=== PATIENT | male | born 1960 | race Caucasian/White ===

== ENCOUNTER 2020-11-27 08:25 | Day surgery (SDC) | payer MEDICAID ==
[2020-11-27] VITALS (9 sets, daily range): BP systolic 132–150; BP diastolic 72–87
[~2020-11-27] VITALS: Ht 172.7 cm; Wt 97.0 kg
[~2020-11-27 08:25] MED LIST: ASPI-611 PO; FLO0.4C PO
[2020-11-27] MEDS ORDERED: normal saline 1000ml 1,000 ML IV PRN (08:45)
[2020-11-27] MEDS ORDERED: MULT-1074 PO (09:23)
[2020-11-27] MEDS ORDERED: ALBU18HF2 INH (09:24)
[2020-11-27] MEDS ORDERED: ACET-1131 PO (09:25)
[2020-11-27] MEDS ORDERED: CHLO25TA10 PO (09:26)
[2020-11-27] MEDS ORDERED: HYDR-3686 PO (09:27)
[2020-11-27] MEDS ORDERED: MELO-100 PO (09:28)
[2020-11-27] MEDS ORDERED: FLUO20CA39 PO (09:28)
[2020-11-27] MEDS ORDERED: LISI-600 PO (09:28)
[2020-11-27] MEDS ORDERED: PRAZ1CAP5 PO (09:29)
[2020-11-27] MEDS ORDERED: midazolam 2 mg/2 ml injection ONE (10:40)
[2020-11-27] MEDS ORDERED: fentaNYL/PF 50MCG/1 ML 2ML syringe ONE (10:40)
== END 2020-11-27 12:20 | disposition home or self-care (01) ==
LOC: SSTAY O 08:25
PROVIDERS: ATTEND Radiology Vascular & Interventional Radiology
DX: C78.6 Secondary malignant neoplasm of retroperitoneum and peritoneum (principal); C80.1 Malignant (primary) neoplasm, unspecified; R19.09 Other intra-abdominal and pelvic swelling, mass and lump; Z20.822 Contact with and (suspected) exposure to COVID-19; N40.0 Benign prostatic hyperplasia without lower urinary tract symptoms; I10 Essential (primary) hypertension; F41.9 Anxiety disorder, unspecified; F32.9 Major depressive disorder, single episode, unspecified; Z79.899 Other long term (current) drug therapy; Z79.82 Long term (current) use of aspirin; Z87.19 Personal history of other diseases of the digestive system
CPT/HCPCS: 10009; 36415; 87635; 99152; 99153; J2250; J3010; 49180; 77012

== ENCOUNTER 2022-09-26 06:43 | Day surgery (SDC) | payer MEDICAID ==
[~2022-09-26] VITALS: Ht 175.3 cm; Wt 93.3 kg
[2022-09-26] VITALS (10 sets, daily range): BP systolic 120–180; BP diastolic 70–108
[~2022-09-26 06:43] MED LIST changes: +ACET-1131 PO; +ALBU18HF2 INH; -ASPI-611 PO; +CHLO25TA10 PO; +FLUO20CA39 PO; +HYDR-3686 PO; +LISI20TA28 PO; +MELO-100 PO; +MULT-1074 PO; +PRAZ1CAP5 PO
[2022-09-26] MEDS ORDERED: normal saline 1000ml 1,000 ML IV PRN (07:05)
[2022-09-26] MEDS ORDERED: APIX2.5T PO (07:07)
[2022-09-26] MEDS ORDERED: HYDR-3964 PO (07:11)
[2022-09-26] MEDS ORDERED: ATOR10TA70 PO (07:11)
[2022-09-26 07:42] LABS: BASOPHILS # (AUTO) 0.1 X10'3 (0-0.2); EOSINOPHILS # (AUTO) 0.2 X10'3 (0-0.9); HEMOGLOBIN 12.7 g/dl (14.0-17.9); MEAN CORPUSCULAR HEMOGLOBIN 27.4 PG (27.0-31.0); MEAN CORPUSCULAR HGB CONC 33.2 g/dL (33.0-36.5); MEAN PLATELET VOLUME 7.2 FL (7.4-10.4); MONOCYTES # (AUTO) 0.9 X10'3 (0-0.9); RED BLOOD COUNT 4.62 X10'6 (4.70-6.10)
[2022-09-26 07:43] LABS: EOSINOPHILS % (AUTO) 2.2 % (0-6); HEMATOCRIT 38.1 % (42.0-52.0); LYMPHOCYTES # (AUTO) 3.3 X10'3 (1.1-4.8); LYMPHOCYTES % (AUTO) 36.9 % (21-51); MEAN CORPUSCULAR VOLUME 82.4 FL (78-98); MONOCYTES % (AUTO) 9.6 % (2-12); NEUTROPHILS # (AUTO) 4.5 X10'3 (1.8-7.7); NEUTROPHILS % (AUTO) 50.3 % (42-75); PLATELET COUNT 578 X10'3 (140-440); RED CELL DISTRIBUTION WIDTH 17.6 % (11.5-14.5)
[2022-09-26] MEDS ORDERED: midazolam 1 mg/ML 2ml injection ONE (08:56)
[2022-09-26] MEDS ORDERED: fentaNYL/PF 50MCG/1 ML 2ML syringe ONE ×2 (08:56→10:15)
[2022-09-26] MEDS ORDERED: LIDOcaine 1% (10mg/ml) 2ml vial ONE (10:03)
== END 2022-09-26 11:30 | disposition home or self-care (01) ==
LOC: SSTAY O 06:43
PROVIDERS: ATTEND Radiology Vascular & Interventional Radiology
DX: R22.2 Localized swelling, mass and lump, trunk (principal); I10 Essential (primary) hypertension; J90 Pleural effusion, not elsewhere classified; C38.4 Malignant neoplasm of pleura; F41.9 Anxiety disorder, unspecified; Z98.890 Other specified postprocedural states; Z79.899 Other long term (current) drug therapy
CPT/HCPCS: 20206; 32555; 36415; 77012; 85025; 85610; C1729; J3010; J3490; J7030; 32408; 99152; 99153; A4615; J2250

== ENCOUNTER 2023-01-23 10:26 | Day surgery (SDC) | payer MEDICAID ==
[2023-01-23] VITALS (9 sets, daily range): BP systolic 136–190; BP diastolic 78–100
[~2023-01-23] VITALS: Ht 175.3 cm; Wt 76.8 kg
[~2023-01-23 10:26] MED LIST changes: -ACET-1131 PO; -ALBU18HF2 INH; +APIX2.5T PO; -CHLO25TA10 PO; -FLO0.4C PO; +FLUD0.1T PO; -HYDR-3686 PO; +HYDR-3972 PO; -LISI20TA28 PO; -MELO-100 PO; +MORP30TA PO; -MULT-1074 PO; +ONDA-104 PO; +PROC10TA10 PO; +cefazolin 2gm/D5W 100mL 100 ML IV ONE; +famotidine 20mg tablet PO ONE; +metoprolol tartrate 12.5mg (1/2 tablet) PO ONE; +ringers solution, lacted 1,000 ML IV SCH
[2023-01-23 12:08] LABS: ABG BASE EXCESS 6.1 mmol/L (-2.0-2.0); ABG OXYGEN SATURATION 98.8 % (94-97); ABG PCO2 (T) 63.4 mmHg (35.0-48.0); ABG PO2 (T) 155.1 mmHg (75.0-100.0); ALLEN'S TEST POSITIVE; FLOW 3 L/min; FMetHb 0.3 % (0.0-1.5); FO2Hb 97.5 % (94-97); TOTAL HEMOGLOBIN 14.3 G/dl (14.0-17.9)
[2023-01-23 12:22] LABS: BASOPHILS % (AUTO) 0.6 % (0-1); EOSINOPHILS % (AUTO) 0.4 % (0-6); LYMPHOCYTES # (AUTO) 1.6 X10'3 (1.1-4.8); LYMPHOCYTES % (AUTO) 22.3 % (21-51); MEAN CORPUSCULAR HEMOGLOBIN 27.8 PG (27.0-31.0); MEAN CORPUSCULAR HGB CONC 32.6 g/dL (33.0-36.5); MEAN CORPUSCULAR VOLUME 85.2 FL (78-98); MEAN PLATELET VOLUME 8.7 FL (7.4-10.4); MONOCYTES # (AUTO) 0.6 X10'3 (0-0.9); MONOCYTES % (AUTO) 7.8 % (2-12); NEUTROPHILS # (AUTO) 5.1 X10'3 (1.8-7.7); NEUTROPHILS % (AUTO) 68.9 % (42-75); PRE OP HEMATOCRIT 41.9 % (42.0-52.0); PRE OP HEMOGLOBIN 13.7 g/dL (14.0-17.9); PRE OP PLATELET COUNT 692 X10'3 (140-440); RED BLOOD COUNT 4.92 X10'6 (4.70-6.10); RED CELL DISTRIBUTION WIDTH 17.6 % (11.5-14.5)
[2023-01-23 12:36] LABS: ALBUMIN 3.1 G/DL (3.4-5.0); ALBUMIN/GLOBULIN RATIO 0.7 (1.1-1.5); ALKALINE PHOSPHATASE 205 IU/L (46-116); BLOOD UREA NITROGEN 8 MG/DL (7-18); BUN/CREATININE RATIO 9.5 (10.0-20.0); CALCIUM 9.6 MG/DL (8.5-10.1); CHLORIDE 99 MMOL/L (99-107); CREATININE 0.84 MG/DL (0.60-1.10); PRE OP ALT 16 U/L (30-65); PRE OP ANION GAP 2 (8-16); PRE OP AST 24 U/L (10-37); PRE OP BILIRUB, TOTAL 0.6 MG/DL (0.0-1.0); PRE OP GLUCOSE 102 MG/DL (70-104); PRE OP SODIUM 138 MMOL/L (135-145); TOTAL CARBON DIOXIDE 36.7 MMOL/L (24-32); TOTAL PROTEIN 7.7 G/DL (6.4-8.2); eGFR > 90 ML/MIN
--- NOTE | 2023-01-23 12:52 | NUR ---
Isreal ROD NOTIFIED OF ABG RESULTS. NO ORDERS RECEIVED AT THIS TIME. Addendum: 01/23/23 at 1253 by Wong Ronquillo RN, RN Amended: Links added.
--- NOTE | 2023-01-23 13:09 | NUR ---
OFFERED PAIN MEDS AND PATIENT DECLINED. VOIDED AFTER WALKING TO THE BATHROOM. Addendum: 01/23/23 at 1310 by Wong Ronquillo RN, RN Amended: Links added.
[2023-01-23 13:26] LABS: ANISOCYTOSIS 1+; HYPOCHROMASIA 1+; PLATELET ESTIMATE INCREASED
[2023-01-23 13:27] LABS: BURR CELLS FEW; ELLIPTOCYTES FEW; SCHISTOCYTES FEW; TARGET CELLS FEW
[2023-01-23] MEDS ORDERED: LIDOcaine 1% 30ml preserv. free vial ONE (13:53)
[2023-01-23] MEDS ORDERED: ringers solution, lacted 1,000 ML IV SCH (14:15)
[2023-01-23] MEDS ORDERED: morphine 4 MG/ML inj SYRINge IV PRN (14:15)
[2023-01-23] MEDS ORDERED: proCHLORperazine 10 MG/2 ml inj IV PRN (14:15)
[2023-01-23] MEDS ORDERED: ondansetron/PF 4mg/2ml inj IV PRN (14:15)
[2023-01-23] MEDS ORDERED: meperidine/PF 25mg/ml syringe IV PRN ×3 (14:15)
[2023-01-23] MEDS ORDERED: morphine 2 MG/ML inj. syringe IV PRN (14:15)
[2023-01-23] MEDS ORDERED: fentaNYL/PF 50MCG/1 ML 2ML syringe ONE ×2 (14:29→15:05)
[2023-01-23] MEDS ORDERED: midazolam 1 mg/ML 2ml injection ONE (14:29)
[2023-01-23] MEDS ORDERED: ketamine 50mg/5ml syringe ONE (14:30)
[2023-01-23] MEDS ORDERED: BUPIVAcaine/PF 5 mg/ml 10ml ONE (14:48)
[2023-01-23] MEDS ORDERED: propofol inj 20 ML IV ONE ×2 (14:57→16:02)
--- NOTE | 2023-01-23 15:15 | NUR ---
Received from OR via , accompanied by Anesthesiologist and report given by Anesthesiolgist. PATIENT WAKING UP DENIES PAIN, V/S WNL, CSM INTACT, DRESSING TO RIGHT SIDE CDI. 20G LUE. SCD ON.
[2023-01-23] MEDS ORDERED: hydrALAZINE 20mg/ml inj. IV PRN (15:20)
--- NOTE | 2023-01-23 15:32 | NUR ---
HYDRALAZINE GIVEN FOR HTN SEE V/S AND EMAR
[2023-01-23] MEDS ORDERED: LIDOcaine 2% (20mg/ml) 5ml vial ONE (16:02)
[2023-01-23] MEDS ORDERED: rocuronium 10mg/ml inj IV ONE (16:02)
--- NOTE | 2023-01-23 16:25 | NUR ---
ABLE TO SAFELY AMBULATE AND TRANSFER SELF. IV TAKEN OUT WITHOUT ANY COMPLICATIONS. ALL DISCHARGE INSTRUCTIONS COVERED WITH PATIENT AND ALL QUESTIONS ANSWERED. PATIENT TAKEN OUT VIA WHEELCHAIR TO PERSONAL VEHICLE WHERE FAMILY/FRIEND DROVE PATIENT HOME. Addendum: 01/23/23 at 1718 by Dyaanna Ronquillo RN, RN Amended: Links added.
--- NOTE | 2023-01-23 16:30 | NUR ---
PT UP TO THE BATHROOM, AMBULATED WITH STEADY GAIT.
== END 2023-01-23 16:25 | disposition home or self-care (01) ==
LOC: PRE-OP 10:26
PROVIDERS: ATTEND Thoracic Surgery (Cardiothoracic Vascular Surgery)
DX: C45.9 Mesothelioma, unspecified (principal); J91.0 Malignant pleural effusion; Z79.899 Other long term (current) drug therapy; J44.9 Chronic obstructive pulmonary disease, unspecified; F32.A Depression, unspecified; I10 Essential (primary) hypertension; Z87.820 Personal history of traumatic brain injury
CPT/HCPCS: 32550; 36415; 36600; 71045; 80053; 82803; 82948; 85018; 85025; 93005; A6258; J0360; J0690; J0780; J2250; J2704; J3010; J3490; J7120; Z7506; Z7512; 85008; A4215; A4615; A6449

== ENCOUNTER 2023-01-24 10:37 | Emergency (ER) | payer MEDICAID ==
[~2023-01-24] VITALS: Ht 175.3 cm; Wt 87.2 kg
[~2023-01-24 10:37] MED LIST changes: -cefazolin 2gm/D5W 100mL 100 ML IV ONE; -famotidine 20mg tablet PO ONE; -metoprolol tartrate 12.5mg (1/2 tablet) PO ONE; -ringers solution, lacted 1,000 ML IV SCH
[2023-01-24 10:51] VITALS: BP 131/83
== END 2023-01-24 13:50 | disposition home or self-care (01) ==
LOC: ER 10:38
DX: Z46.82 Encounter for fitting and adjustment of non-vascular catheter (principal); Z79.01 Long term (current) use of anticoagulants; Z79.899 Other long term (current) drug therapy
CPT/HCPCS: 99282; A6213; A6449